=== PATIENT | female | born 1955 | race Caucasian/White ===

== ENCOUNTER → 2018-09-24 | Outpatient (CLI) | payer OTHER ==
--- NOTE | 2018-09-24 11:42 | ECHOS ---
STRESS ECHOCARDIOGRAM INDICATIONS: Chest pain. MEDICATIONS: Lantus, Actos, Januvia, metformin, glimepiride, Zoloft, Synthroid. BASELINE HEART RATE: 96 BASELINE BLOOD PRESSURE: 133/85 MAXIMUM HEART RATE: 144 MAXIMUM BLOOD PRESSURE: 175/81 85% MPHR: 135 100% MPHR: 159 METS: 9.7 MAXIMUM STAGE REACHED: II TOTAL EXERCISE TIME: 8:26 CLINICAL INFORMATION: Baseline rhythm is sinus mechanism, rate of 96, normal axis and intervals, normal echocardiogram. Baseline blood pressure 133/85 mmHg. Patient exercised on Timo protocol for 8 minute 26 seconds reaching peak rate of 144 beats per minute which is equal to 90% maximum predicted heart rate. Peak blood pressure 175/81 mmHg. Test was terminated due to fatigue. There was no chest pain. Electrocardiograph monitoring revealed no evidence of diagnostic ischemic ST deviation. FINDINGS: Baseline echocardiogram revealed normal wall motion. At peak exercise, there was normal wall motion augmentation with no hypokinesis or dyskinesis. CONCLUSION: 1. Average exercise tolerance with normal electrocardiographic response to exercise. 2. Normal stress echocardiogram with no evidence of stress induced ischemia. MMODL / IJN: [id number] /
== END ==
LOC: RADNMMAIN 09:07
PROVIDERS: ATTEND Internal Medicine Geriatric Medicine
DX: I20.9 Angina pectoris, unspecified (principal)
CPT/HCPCS: 93351